=== PATIENT | female | born 1935 | race Caucasian/White ===

== ENCOUNTER 2017-02-01 17:55 | Emergency (ER) | payer MEDICARE ==
[~2017-02-01] VITALS: Ht 165.1 cm; Wt 81.6 kg
[2017-02-01 18:00] VITALS: BP_SYST 132
--- NOTE | 2017-02-01 18:00 | NUR ---
Patient to ER bed 03 to gown for evaluation. Side rails up. Report given to
--- NOTE | 2017-02-01 18:29 | NUR ---
Patient to ED for eval of low back, left hip and arm pain s/p non-syncopal fall on 01/10/17. Seen at outside hospital, had x-rays which were negative. Patient has had episodes of coughing up blood-taken off blood thinners per patient. Patient to bed 3 to await MD evaluation-will continue to observe and assess. Family remains at bedside.
--- NOTE | 2017-02-01 18:46 | NUR ---
ER at bedside examining patient.
[2017-02-01] MEDS ORDERED: MORPHINE 4 MG/ML INJ. SYRINGE IVP ONE (19:00)
[2017-02-01] MEDS ORDERED: PANTOPRAZOLE SODIUM 40 MG in NS 50 ML IV ONE (19:00)
[2017-02-01] MEDS ORDERED: PANTOPRAZOLE SODIUM 80 MG in NS 100 ML IV ONE (19:00)
--- NOTE | 2017-02-01 19:22 | NUR ---
Attempted to start IV without success, charge nurse notified, and will be in to attempt IV
[2017-02-01 19:25] LABS: EOSINOPHILS # (AUTO) 0.2 K/uL (0.0-0.4); EOSINOPHILS % (AUTO) 5.3 % (0.0-4.0); HEMATOCRIT 31.7 % (36-48); HEMOGLOBIN 10.5 g/dL (12.0-16.0); LYMPHOCYTES # (AUTO) 0.9 K/uL (1.0-5.5); LYMPHOCYTES % (AUTO) 19.8 % (20.5-51.5); MEAN CORPUSCULAR HEMOGLOBIN 32 pg (27-31); MEAN CORPUSCULAR HGB CONC 33 % (32-36); MEAN CORPUSCULAR VOLUME 96 fL (79.0-98.0); MONOCYTES # (AUTO) 0.6 K/uL (0.0-1.0); MONOCYTES % (AUTO) 14.3 % (1.7-9.3); NEUTROPHILS # (AUTO) 2.8 K/uL (1.8-7.7); NEUTROPHILS % (AUTO) 59.6 % (40.0-70.0); PLATELET COUNT (AUTO) 178 K/uL (130-430); RED BLOOD CELL COUNT(AUTO) 3.31 MIL/uL (4.2-6.2); RED CELL DISTRIBUTION WIDTH 12.6 % (9.0-15.0); WHITE BLOOD COUNT (AUTO) 4.5 K/uL (4.8-10.8)
[2017-02-01 19:35] LABS: INR 1.1 (0.8-1.2); PROTHROMBIN TIME 11.4 SECS (9.5-12.5)
[2017-02-01 19:37] LABS: ANION GAP 6 (5-15); CALCIUM 8.6 mg/dL (8.4-11.0); CHLORIDE 93 mmol/L (98-107); GLUCOSE 113 mg/dL (70-99); POTASSIUM 4.3 mmol/L (3.5-5.1); SODIUM SERUM 125 mmol/L (136-145); UREA NITROGEN, BLOOD 18 mg/dL (8-21)
[2017-02-01 19:42] LABS: ALANINE AMINOTRANSFERASE 21 U/L (12-78); ALBUMIN 3.5 g/dL (3.4-4.8); ASPARTATE AMINOTRANSFERASE 22 U/L (10-37); TOTAL BILIRUBIN 0.5 mg/dL (0.0-1.0); TOTAL PROTEIN, SERUM 7.1 g/dL (6.4-8.3)
--- NOTE | 2017-02-01 20:17 | NUR ---
Additional nurse-Roseline at bedside to attempt IV access. Patient resting quietly in nad
[2017-02-01] MEDS ORDERED: AMI200 PO (20:55)
[2017-02-01] MEDS ORDERED: POTA20TA83 PO (20:55)
[2017-02-01] MEDS ORDERED: METO25TA6 PO (20:55)
[2017-02-01] MEDS ORDERED: HYDR25TA4 PO (20:55)
[2017-02-01] MEDS ORDERED: BUME1TAB4 PO (20:55)
[2017-02-01 21:56] VITALS: BP_SYST 147
--- NOTE | 2017-02-01 21:56 | NUR ---
Patient given written and verbal discharge instructions and verbalizes understanding. ER MD LOUIS discussed with patient the results and treatment provided. Patient in stable condition. ID arm band removed. IV catheter removed intact and dressing applied, no active bleeding. Rx of NORCO 10-325, OMEPRAZOLE, LASIX given. Patient educated on pain management and to follow up with PMD. Pain Scale 2/10. Opportunity for questions provided and answered.
== END 2017-02-01 21:56 | disposition home or self-care (01) ==
LOC: SED 17:55
DX: S70.01XA Contusion of right hip, initial encounter (principal); I50.9 Heart failure, unspecified; K92.1 Melena; Z95.0 Presence of cardiac pacemaker; Z79.899 Other long term (current) drug therapy; W18.30XA Fall on same level, unspecified, initial encounter; Y93.89 Activity, other specified; Y92.89 Other specified places as the place of occurrence of the external cause; Y99.8 Other external cause status; Z88.8 Allergy status to other drugs, medicaments and biological substances
CPT/HCPCS: 36415; 71010; 80053; 83605; 83880; 84484; 85025; 85610; 87040; 93005; 96365; 96375; 99285; C9113; J2270

== ENCOUNTER 2023-04-22 11:34 | Inpatient (IN) | payer OTHER, MEDICAID ==
[~2023-04-22] VITALS: Ht 165.1 cm; Wt 98.0 kg
[~2023-04-22 11:34] MED LIST: AMIO200T66 PO; BUME1TAB9 PO; CARBOXYMETHYLCELLULOSE OP SCH; HYDR25TA4 PO; METO25TA6 PO; POTA-197 PO
[2023-04-22 11:45] VITALS: BP_SYST 146; PULSE 75; RESP 20; TEMP 98.3; O2SAT 98
[2023-04-22 12:30] LABS: HEMATOCRIT 35.9 % (36-48); HEMOGLOBIN 11.6 g/dL (12.0-16.0); MEAN CORPUSCULAR HEMOGLOBIN 33 pg (27-31); MEAN CORPUSCULAR HGB CONC 32 % (32-36); MEAN CORPUSCULAR VOLUME 103 fL (79.0-98.0); PLATELET COUNT (AUTO) 92 K/uL (130-430); RED CELL DISTRIBUTION WIDTH 14.6 % (9.0-15.0)
[2023-04-22 12:36] LABS: ANION GAP 10 (5-15); CALCIUM 9.7 mg/dL (8.4-11.0); CARBON DIOXIDE 26 mmol/L (23-29); CHLORIDE 106 mmol/L (98-107); CREATININE 0.95 mg/dL (0.55-1.30); GLUCOSE 98 mg/dL (74-106); POTASSIUM 3.6 mmol/L (3.5-5.1); SODIUM SERUM 142 mmol/L (136-145); UREA NITROGEN, BLOOD 20 mg/dL (8-21)
[2023-04-22] MEDS ORDERED: FER300L PO (12:39)
[2023-04-22] MEDS ORDERED: FURO80TA86 PO (12:39)
[2023-04-22] MEDS ORDERED: DIGO125T PO (12:39)
[2023-04-22] MEDS ORDERED: APIX5TAB PO (12:39)
[2023-04-22] MEDS ORDERED: CHOL200019 (12:39)
[2023-04-22] MEDS ORDERED: ACET-2634 PO (12:40)
[2023-04-22] MEDS ORDERED: [UNRECOGNIZED DRUG - OTHER] OP (12:40)
[2023-04-22] MEDS ORDERED: CARB30DR14 EACH EYE (12:40)
[2023-04-22 12:41] LABS: WHITE BLOOD COUNT (AUTO) 4.4 K/uL (4.8-10.8)
[2023-04-22 12:46] LABS: INR 1.3 (0.8-1.2); PROTHROMBIN TIME 13.5 SECS (9.5-12.5)
[2023-04-22 12:47] LABS: ALANINE AMINOTRANSFERASE 17 U/L (12-78); ALBUMIN 3.4 g/dL (3.4-4.8); AMYLASE 33 U/L (0-100); ASPARTATE AMINOTRANSFERASE 29 U/L (10-37); LIPASE 49 U/L (73-393); TOTAL BILIRUBIN 2.6 mg/dL (0.0-1.0); TOTAL PROTEIN, SERUM 8.1 g/dL (6.4-8.3)
[2023-04-22 13:35] LABS: ANISOCYTOSIS 1+; ATYPICAL LYMPHOCYTES % 0 % (0-0); BAND % (MANUAL) 25 % (0-6); BASOPHILS % (MANUAL) 0 % (0-2); EOSINOPHILS % (MANUAL) 0 % (0-7); HYPOCHROMASIA 1+; LYMPHOCYTES % (MANUAL) 12 % (20-46); MONOCYTES % (MANUAL) 3 % (0-11); PLATELET ESTIMATE DECREASED (ADEQUATE); SMUDGE CELLS FEW
[2023-04-22] MEDS ORDERED: PANTOPRAZOLE SODIUM 80 MG in NS 100 ML IV ONE (14:30)
[2023-04-22] MEDS ORDERED: MORPHINE 4 MG INJ. 4 MG/ML VIAL IVP PRN (16:00)
[2023-04-22] MEDS ORDERED: traMADol HCL HCL 50 MG TABLET (ULTRAM) PO PRN (16:00)
[2023-04-22] MEDS ORDERED: ONDANSETRON HCL 4 MG/2 ML VIAL IM PRN (16:00)
[2023-04-22] MEDS ORDERED: ACETAMINOPHEN 500 MG TABLET PO PRN (17:30)
[2023-04-22 18:13] VITALS: O2SAT 100
[2023-04-22 18:32] VITALS: BP_SYST 109; PULSE 74; RESP 18; TEMP 98.2
[2023-04-22 20:00] VITALS: BP_SYST 110; RESP 18; TEMP 98.4; O2SAT 94
[2023-04-22] MEDS: BUMETANIDE 1 MG TABLET PO SCH (20:39)
[2023-04-22] MEDS ORDERED: CARBOXYMETHYLCELLULOSE SODIUM EACH EYE SCH (21:00)
[2023-04-22] MEDS ORDERED: DOXYCYCLINE HYCLATE 100 MG in D5W 100 ML IV SCH (21:00)
[2023-04-22] MEDS: PANTOPRAZOLE SODIUM 40 MG/VIAL (PROTONIX) IVP SCH (21:57)
[2023-04-23] VITALS (9 sets, daily range): BP systolic 88–110; PULSE 65–81; RESP 10–29; TEMP 98.4–99.7; O2SAT 2–95
[2023-04-23] MEDS ORDERED: METOPROLOL TARTRATE 25 MG TABLET PO ONE (04:30)
[2023-04-23 05:12] LABS: BASOPHILS % (AUTO) 0.1 % (0.0-2.0); EOSINOPHILS % (AUTO) 0.1 % (0.0-4.0); HEMATOCRIT 32.3 % (36-48); HEMOGLOBIN 10.7 g/dL (12.0-16.0); LYMPHOCYTES # (AUTO) 0.3 K/uL (1.0-5.5); LYMPHOCYTES % (AUTO) 4.9 % (20.5-51.5); MEAN CORPUSCULAR HEMOGLOBIN 33 pg (27-31); MEAN CORPUSCULAR HGB CONC 33 % (32-36); MEAN CORPUSCULAR VOLUME 101 fL (79.0-98.0); MONOCYTES # (AUTO) 0.5 K/uL (0.0-1.0); MONOCYTES % (AUTO) 8.3 % (1.7-9.3); NEUTROPHILS # (AUTO) 5.7 K/uL (1.8-7.7); NEUTROPHILS % (AUTO) 86.6 % (40.0-70.0); PLATELET COUNT (AUTO) 72 K/uL (130-430); RED BLOOD CELL COUNT(AUTO) 3.19 MIL/uL (4.2-6.2); RED CELL DISTRIBUTION WIDTH 14.7 % (9.0-15.0); WHITE BLOOD COUNT (AUTO) 6.5 K/uL (4.8-10.8)
[2023-04-23 05:38] LABS: INR 1.7 (0.8-1.2)
[2023-04-23 05:41] LABS: ALANINE AMINOTRANSFERASE 17 U/L (12-78); ALBUMIN 2.6 g/dL (3.4-4.8); ANION GAP 10 (5-15); ASPARTATE AMINOTRANSFERASE 29 U/L (10-37); CARBON DIOXIDE 25 mmol/L (23-29); CHLORIDE 106 mmol/L (98-107); CREATININE 1.35 mg/dL (0.55-1.30); FREE T4 (FREE THYROXINE) 1.3 ng/dL (0.6-1.6); GLUCOSE 94 mg/dL (74-106); POTASSIUM 3.9 mmol/L (3.5-5.1); SODIUM SERUM 141 mmol/L (136-145); THYROID STIMULATING HORMONE 1.04 uIu/mL (0.34-4.82); TOTAL BILIRUBIN 3.9 mg/dL (0.0-1.0); TOTAL PROTEIN, SERUM 6.7 g/dL (6.4-8.3); UREA NITROGEN, BLOOD 30 mg/dL (8-21)
[2023-04-23] MEDS ORDERED: MIDAZOLAM HCL 5 MG/5 ML VIAL ONE (07:30)
[2023-04-23] MEDS ORDERED: MEPERIDINE 100 MG INJ. 100 MG/ML VIAL ONE (07:30)
[2023-04-23] MEDS: DIGOXIN 0.125 MG TABLET PO SCH (09:00)
[2023-04-23] MEDS: METOPROLOL TARTRATE 25 MG TABLET PO SCH (09:00)
[2023-04-23] MEDS: AMIODARONE HCL 200 MG TABLET PO SCH (09:00)
[2023-04-23] MEDS ORDERED: POTASSIUM CHLORIDE 20 MEQ TAB.PRT.SR PO SCH (09:00)
[2023-04-23] MEDS ORDERED: FUROSEMIDE 80 MG TABLET PO SCH (09:00)
[2023-04-23] MEDS: BUMETANIDE 1 MG TABLET PO SCH ×2 (09:00→22:06)
[2023-04-23] MEDS: CARBOXYMETHYLCELLULOSE OP SCH ×3 (09:46→21:00)
[2023-04-23] MEDS: CHOLECALCIFEROL (VITAMIN D3) 2,000 UNIT TABLET PO SCH (09:49)
[2023-04-23] MEDS: FERROUS SULFATE 300 MG/5 ML UDC PO SCH (09:49)
[2023-04-23] MEDS ORDERED: MIDODRINE HCL 5 MG TABLET (PROAMATINE) PO ONE (11:15)
[2023-04-23] MEDS: PANTOPRAZOLE SODIUM 40 MG/VIAL (PROTONIX) IVP SCH ×2 (12:46→21:10)
[2023-04-23] MEDS ORDERED: NOREPINEPHRINE BITARTRATE 4 MG in D5W 246 ML IV PRN (14:00)
[2023-04-23] MEDS: MIDODRINE HCL 5 MG TABLET (PROAMATINE) PO SCH ×2 (15:00→21:00)
[2023-04-23] MEDS: PIPERACILLIN/TAZO 2.25G/DEX-IS 50 ML IV SCH ×2 (17:20→22:05)
[2023-04-23] MEDS: NACL 0.9% 1,000 ML IV SCH (17:45)
[2023-04-23] MEDS ORDERED: VANCOMYCIN HCL 1,000 MG in NS 250 ML IV ONE (18:00)
[2023-04-24] VITALS (28 sets, daily range): BP systolic 89–121; PULSE 78–81; RESP 14–23; TEMP 97.7–98.6; O2SAT 90–98
[2023-04-24] MEDS: PIPERACILLIN/TAZO 2.25G/DEX-IS 50 ML IV SCH ×4 (03:38→21:46)
[2023-04-24 05:52] LABS: BASOPHILS % (AUTO) 0.1 % (0.0-2.0); EOSINOPHILS % (AUTO) 0.3 % (0.0-4.0); HEMATOCRIT 32.3 % (36-48); HEMOGLOBIN 10.4 g/dL (12.0-16.0); LYMPHOCYTES # (AUTO) 0.4 K/uL (1.0-5.5); LYMPHOCYTES % (AUTO) 3.9 % (20.5-51.5); MEAN CORPUSCULAR HEMOGLOBIN 33 pg (27-31); MEAN CORPUSCULAR HGB CONC 32 % (32-36); MEAN CORPUSCULAR VOLUME 103 fL (79.0-98.0); MONOCYTES % (AUTO) 10.2 % (1.7-9.3); NEUTROPHILS # (AUTO) 8.4 K/uL (1.8-7.7); NEUTROPHILS % (AUTO) 85.5 % (40.0-70.0); PLATELET COUNT (AUTO) 74 K/uL (130-430); RED BLOOD CELL COUNT(AUTO) 3.15 MIL/uL (4.2-6.2); WHITE BLOOD COUNT (AUTO) 9.8 K/uL (4.8-10.8)
[2023-04-24 06:18] LABS: INR 1.6 (0.8-1.2)
[2023-04-24 06:34] LABS: ALANINE AMINOTRANSFERASE 18 U/L (12-78); ALBUMIN 2.6 g/dL (3.4-4.8); ANION GAP 7 (5-15); ASPARTATE AMINOTRANSFERASE 24 U/L (10-37); CALCIUM 8.7 mg/dL (8.4-11.0); CARBON DIOXIDE 26 mmol/L (23-29); CHLORIDE 105 mmol/L (98-107); CHOLESTEROL 69 mg/dL (<200); CREATININE 1.78 mg/dL (0.55-1.30); FREE T4 (FREE THYROXINE) 1.2 ng/dL (0.6-1.6); GLUCOSE 95 mg/dL (74-106); HDL CHOLESTEROL 34 mg/dL (>55); POTASSIUM 4.4 mmol/L (3.5-5.1); SODIUM SERUM 138 mmol/L (136-145); THYROID STIMULATING HORMONE 1.17 uIu/mL (0.34-4.82); TOTAL BILIRUBIN 3.3 mg/dL (0.0-1.0); TOTAL PROTEIN, SERUM 6.8 g/dL (6.4-8.3); TRIGLYCERIDES 47 mg/dL (30-150); UREA NITROGEN, BLOOD 41 mg/dL (8-21)
[2023-04-24 06:35] LABS: DIGOXIN 0.5 ng/mL (0.80-2.00)
[2023-04-24] MEDS: NACL 0.9% 1,000 ML IV SCH ×3 (07:49→21:46)
[2023-04-24] MEDS: ALBUMIN HUMAN 25% 50 ML IV SCH ×3 (07:50→21:39)
[2023-04-24] MEDS ORDERED: SIMETHICONE 40 MG/0.6 ML ML ONE (08:05)
[2023-04-24] MEDS ORDERED: MIDAZOLAM HCL 5 MG/5 ML VIAL ONE (08:06)
[2023-04-24] MEDS ORDERED: MEPERIDINE 100 MG INJ. 100 MG/ML VIAL ONE (08:06)
[2023-04-24] MEDS: AMIODARONE HCL 200 MG TABLET PO SCH (08:21)
[2023-04-24] MEDS: CARBOXYMETHYLCELLULOSE OP SCH ×3 (08:21→21:00)
[2023-04-24] MEDS: FERROUS SULFATE 300 MG/5 ML UDC PO SCH (08:22)
[2023-04-24] MEDS: DIGOXIN 0.125 MG TABLET PO SCH (08:22)
[2023-04-24] MEDS: BUMETANIDE 1 MG TABLET PO SCH ×2 (08:22→21:45)
[2023-04-24] MEDS: METOPROLOL TARTRATE 25 MG TABLET PO SCH (08:23)
[2023-04-24] MEDS: CHOLECALCIFEROL (VITAMIN D3) 2,000 UNIT TABLET PO SCH (08:24)
[2023-04-24] MEDS: MIDODRINE HCL 5 MG TABLET (PROAMATINE) PO SCH ×3 (08:24→21:45)
[2023-04-24] MEDS: PANTOPRAZOLE SODIUM 40 MG/VIAL (PROTONIX) IVP SCH ×2 (08:29→21:39)
[2023-04-24] MEDS ORDERED: DIPHENHYDRAMINE INJ 50 MG/ML VIAL ONE (09:14)
[2023-04-24 12:45] LABS: ABG O2 SAT% ESTIMATE 96.7 % (94.0-100.0); ALLEN'S TEST POSITIVE (P); BLOOD GAS HCO3 23.6 mmol/L (21.0-27.0); BLOOD GAS PCO2 47.9 mmHg (35.0-45.0); BLOOD GAS PO2 96.1 mmHg (75.0-100.0)
[2023-04-24] MEDS: AZITHROMYCIN 500 MG in NS 250 ML IV SCH (12:46)
[2023-04-24] MEDS ORDERED: FUROSEMIDE 40 MG/4 ML VIAL IVP ONE (15:15)
[2023-04-24] MEDS ORDERED: MENTHOL/ZINC OXIDE 113 GM OINT. TP PRN (15:15)
[2023-04-24] MEDS: PROPARACAINE (OPTHANINE 0.5%) 15 ML DROPS OP PRN ×2 (15:23→21:39)
[2023-04-24] MEDS ORDERED: VANCOMYCIN HCL 750 MG in NS 250 ML IV SCH (18:00)
[2023-04-24 22:02] LABS: BILIRUBIN,URINE 1+ (NEGATIVE); BLOOD, URINE 3+ (NEGATIVE); CLARITY/URINE CLEAR (CLEAR); COLOR,URINE YELLOW (YELLOW); GLUCOSE,URINE NEGATIVE (NEGATIVE); KETONES,URINE NEGATIVE (NEGATIVE); LEUKOCYTE ESTERASE ,URINE TRACE (NEGATIVE); NITRITE, URINE NEGATIVE (NEGATIVE); PH,URINE 5.5 (5.0-8.0); PROTEIN URINE 2+ (NEGATIVE)
[2023-04-24 22:42] LABS: BACTERIA,URINE FEW /HPF (None Seen)
[2023-04-25] VITALS (27 sets, daily range): BP systolic 96–121; PULSE 74–88; RESP 13–25; TEMP 97.6–98.1; O2SAT 88–100
[2023-04-25] MEDS: PIPERACILLIN/TAZO 2.25G/DEX-IS 50 ML IV SCH ×4 (04:38→22:42)
[2023-04-25 04:59] LABS: BASOPHILS % (AUTO) 0.2 % (0.0-2.0); EOSINOPHILS # (AUTO) 0.1 K/uL (0.0-0.4); EOSINOPHILS % (AUTO) 1.4 % (0.0-4.0); HEMATOCRIT 33.6 % (36-48); HEMOGLOBIN 10.7 g/dL (12.0-16.0); LYMPHOCYTES # (AUTO) 0.4 K/uL (1.0-5.5); LYMPHOCYTES % (AUTO) 4.5 % (20.5-51.5); MEAN CORPUSCULAR HEMOGLOBIN 33 pg (27-31); MEAN CORPUSCULAR HGB CONC 32 % (32-36); MEAN CORPUSCULAR VOLUME 104 fL (79.0-98.0); MONOCYTES # (AUTO) 0.9 K/uL (0.0-1.0); MONOCYTES % (AUTO) 9.7 % (1.7-9.3); NEUTROPHILS # (AUTO) 7.8 K/uL (1.8-7.7); NEUTROPHILS % (AUTO) 84.2 % (40.0-70.0); PLATELET COUNT (AUTO) 82 K/uL (130-430); RED BLOOD CELL COUNT(AUTO) 3.24 MIL/uL (4.2-6.2); RED CELL DISTRIBUTION WIDTH 15.1 % (9.0-15.0); WHITE BLOOD COUNT (AUTO) 9.3 K/uL (4.8-10.8)
[2023-04-25 05:29] LABS: ALANINE AMINOTRANSFERASE 15 U/L (12-78); ANION GAP 8 (5-15); ASPARTATE AMINOTRANSFERASE 21 U/L (10-37); CALCIUM 9.1 mg/dL (8.4-11.0); CARBON DIOXIDE 26 mmol/L (23-29); CHLORIDE 102 mmol/L (98-107); CREATININE 1.98 mg/dL (0.55-1.30); GLUCOSE 112 mg/dL (74-106); PHOSPHORUS 3.9 mg/dL (2.7-4.5); POTASSIUM 4.3 mmol/L (3.5-5.1); SODIUM SERUM 136 mmol/L (136-145); TOTAL BILIRUBIN 3.1 mg/dL (0.0-1.0); TOTAL PROTEIN, SERUM 7.4 g/dL (6.4-8.3); UREA NITROGEN, BLOOD 48 mg/dL (8-21)
[2023-04-25] MEDS: CHOLECALCIFEROL (VITAMIN D3) 2,000 UNIT TABLET PO SCH (09:19)
[2023-04-25] MEDS: DIGOXIN 0.125 MG TABLET PO SCH (09:19)
[2023-04-25] MEDS: METOPROLOL TARTRATE 25 MG TABLET PO SCH (09:19)
[2023-04-25] MEDS: PANTOPRAZOLE SODIUM 40 MG/VIAL (PROTONIX) IVP SCH ×2 (09:20→22:39)
[2023-04-25] MEDS: BUMETANIDE 1 MG TABLET PO SCH ×2 (09:20→22:39)
[2023-04-25] MEDS: CARBOXYMETHYLCELLULOSE OP SCH ×3 (09:20→21:00)
[2023-04-25] MEDS: NACL 0.9% 1,000 ML IV SCH ×2 (09:21→22:41)
[2023-04-25] MEDS: FERROUS SULFATE 300 MG/5 ML UDC PO SCH (09:22)
[2023-04-25] MEDS: MIDODRINE HCL 5 MG TABLET (PROAMATINE) PO SCH ×3 (09:22→22:39)
[2023-04-25 10:58] LABS: URINE SODIUM, RANDOM 13 mmol/L (40-220)
[2023-04-25] MEDS: AZITHROMYCIN 500 MG in NS 250 ML IV SCH (12:39)
[2023-04-25] MEDS: PROPARACAINE (OPTHANINE 0.5%) 15 ML DROPS OP PRN (22:40)
[2023-04-26] VITALS (25 sets, daily range): BP systolic 91–136; PULSE 65–103; RESP 16–25; TEMP 97.5–98.8; O2SAT 80–97
[2023-04-26] MEDS ORDERED: FUROSEMIDE 20 MG/2 ML VIAL ONE (02:15)
[2023-04-26] MEDS ORDERED: IPRATROPIUM/ALBUTEROL SULFATE 3 ML AMPUL.NEB (DUONEB) INH PRN (02:15)
[2023-04-26] MEDS ORDERED: FUROSEMIDE 20 MG/2 ML VIAL IVP ONE (02:25)
[2023-04-26] MEDS: PIPERACILLIN/TAZO 2.25G/DEX-IS 50 ML IV SCH ×4 (05:29→21:27)
[2023-04-26 05:55] LABS: BASOPHILS % (AUTO) 0.3 % (0.0-2.0); EOSINOPHILS # (AUTO) 0.1 K/uL (0.0-0.4); EOSINOPHILS % (AUTO) 2.5 % (0.0-4.0); HEMATOCRIT 33.1 % (36-48); HEMOGLOBIN 10.8 g/dL (12.0-16.0); LYMPHOCYTES # (AUTO) 0.5 K/uL (1.0-5.5); MEAN CORPUSCULAR HEMOGLOBIN 33 pg (27-31); MEAN CORPUSCULAR HGB CONC 33 % (32-36); MEAN CORPUSCULAR VOLUME 102 fL (79.0-98.0); MONOCYTES # (AUTO) 0.8 K/uL (0.0-1.0); MONOCYTES % (AUTO) 15.5 % (1.7-9.3); NEUTROPHILS # (AUTO) 3.6 K/uL (1.8-7.7); NEUTROPHILS % (AUTO) 71.7 % (40.0-70.0); PLATELET COUNT (AUTO) 82 K/uL (130-430); RED BLOOD CELL COUNT(AUTO) 3.25 MIL/uL (4.2-6.2); RED CELL DISTRIBUTION WIDTH 14.5 % (9.0-15.0)
[2023-04-26 06:11] LABS: INR 1.3 (0.8-1.2); PROTHROMBIN TIME 13.7 SECS (9.5-12.5)
[2023-04-26 06:26] LABS: ALANINE AMINOTRANSFERASE 14 U/L (12-78); ALBUMIN 2.8 g/dL (3.4-4.8); ANION GAP 12 (5-15); ASPARTATE AMINOTRANSFERASE 19 U/L (10-37); CALCIUM 9.1 mg/dL (8.4-11.0); CARBON DIOXIDE 25 mmol/L (23-29); CHLORIDE 105 mmol/L (98-107); CREATININE 1.89 mg/dL (0.55-1.30); DIGOXIN 0.6 ng/mL (0.80-2.00); GLUCOSE 96 mg/dL (74-106); PHOSPHORUS 3.4 mg/dL (2.7-4.5); POTASSIUM 4.2 mmol/L (3.5-5.1); SODIUM SERUM 142 mmol/L (136-145); UREA NITROGEN, BLOOD 49 mg/dL (8-21)
[2023-04-26] MEDS: CARBOXYMETHYLCELLULOSE OP SCH ×2 (09:00→13:36)
[2023-04-26] MEDS: MIDODRINE HCL 5 MG TABLET (PROAMATINE) PO SCH ×3 (09:23→20:35)
[2023-04-26] MEDS: DIGOXIN 0.125 MG TABLET PO SCH (09:23)
[2023-04-26] MEDS: BUMETANIDE 1 MG TABLET PO SCH ×2 (09:24→20:36)
[2023-04-26] MEDS: CHOLECALCIFEROL (VITAMIN D3) 2,000 UNIT TABLET PO SCH (09:25)
[2023-04-26] MEDS: FERROUS SULFATE 300 MG/5 ML UDC PO SCH (09:26)
[2023-04-26] MEDS: PANTOPRAZOLE SODIUM 40 MG/VIAL (PROTONIX) IVP SCH ×2 (09:26→20:35)
[2023-04-26] MEDS: METOPROLOL TARTRATE 25 MG TABLET PO SCH (13:29)
[2023-04-26] MEDS: AZITHROMYCIN 500 MG in NS 250 ML IV SCH (13:29)
[2023-04-26] MEDS: NACL 0.9% 1,000 ML IV SCH (13:36)
[2023-04-26 17:30] LABS: INFLUENZA TYPE A Negative (NEGATIVE); INFLUENZA TYPE B NEGATIVE (NEGATIVE)
[2023-04-26] MEDS ORDERED: PEG 400/HYPROMELLOSE/GLYCERIN 15 ML DROPS OP PRN (18:00)
[2023-04-26] MEDS ORDERED: ALAWAY EYE DROPS OP PRN (18:00)
[2023-04-27 00:05] VITALS: BP_SYST 125; PULSE 72; RESP 20; TEMP 96.9; O2SAT 96
[2023-04-27] MEDS: PIPERACILLIN/TAZO 2.25G/DEX-IS 50 ML IV SCH ×2 (05:01→09:41)
[2023-04-27 05:48] LABS: BASOPHILS % (AUTO) 0.8 % (0.0-2.0); EOSINOPHILS # (AUTO) 0.1 K/uL (0.0-0.4); HEMATOCRIT 34.1 % (36-48); HEMOGLOBIN 11.1 g/dL (12.0-16.0); LYMPHOCYTES # (AUTO) 0.5 K/uL (1.0-5.5); MEAN CORPUSCULAR HEMOGLOBIN 33 pg (27-31); MEAN CORPUSCULAR HGB CONC 33 % (32-36); MEAN CORPUSCULAR VOLUME 102 fL (79.0-98.0); MONOCYTES # (AUTO) 0.9 K/uL (0.0-1.0); NEUTROPHILS # (AUTO) 2.5 K/uL (1.8-7.7); NEUTROPHILS % (AUTO) 61.2 % (40.0-70.0); PLATELET COUNT (AUTO) 89 K/uL (130-430); RED BLOOD CELL COUNT(AUTO) 3.36 MIL/uL (4.2-6.2); RED CELL DISTRIBUTION WIDTH 14.6 % (9.0-15.0)
[2023-04-27 06:18] LABS: ALANINE AMINOTRANSFERASE 15 U/L (12-78); ALBUMIN 2.8 g/dL (3.4-4.8); ANION GAP 11 (5-15); ASPARTATE AMINOTRANSFERASE 17 U/L (10-37); CALCIUM 9.4 mg/dL (8.4-11.0); CARBON DIOXIDE 26 mmol/L (23-29); CHLORIDE 104 mmol/L (98-107); CHOLESTEROL 74 mg/dL (<200); CREATININE 1.78 mg/dL (0.55-1.30); GLUCOSE 91 mg/dL (74-106); HDL CHOLESTEROL 31 mg/dL (>55); PHOSPHORUS 3.3 mg/dL (2.7-4.5); POTASSIUM 3.7 mmol/L (3.5-5.1); SODIUM SERUM 141 mmol/L (136-145); TOTAL BILIRUBIN 2.7 mg/dL (0.0-1.0); TOTAL PROTEIN, SERUM 7.3 g/dL (6.4-8.3); TRIGLYCERIDES 50 mg/dL (30-150); UREA NITROGEN, BLOOD 47 mg/dL (8-21)
[2023-04-27 08:00] VITALS: O2SAT 95
[2023-04-27] MEDS: DIGOXIN 0.125 MG TABLET PO SCH (09:40)
[2023-04-27] MEDS: FERROUS SULFATE 300 MG/5 ML UDC PO SCH (09:40)
[2023-04-27] MEDS: CHOLECALCIFEROL (VITAMIN D3) 2,000 UNIT TABLET PO SCH (09:41)
[2023-04-27] MEDS: METOPROLOL TARTRATE 25 MG TABLET PO SCH (09:41)
[2023-04-27] MEDS: PANTOPRAZOLE SODIUM 40 MG/VIAL (PROTONIX) IVP SCH ×2 (09:41→21:48)
[2023-04-27] MEDS: MIDODRINE HCL 5 MG TABLET (PROAMATINE) PO SCH ×3 (09:41→21:48)
[2023-04-27] MEDS: BUMETANIDE 1 MG TABLET PO SCH ×2 (09:42→21:00)
[2023-04-27 12:00] VITALS: BP_SYST 122; PULSE 75; RESP 19; TEMP 97.2; O2SAT 97
[2023-04-27] MEDS: NACL 0.9% 1,000 ML IV SCH (13:20)
[2023-04-27 16:42] VITALS: BP_SYST 124; PULSE 77; RESP 20; TEMP 97.8; O2SAT 97
[2023-04-27 20:25] VITALS: BP_SYST 118; PULSE 66; RESP 16; TEMP 97.5; O2SAT 95
[2023-04-27 21:00] VITALS: O2SAT 95
[2023-04-28] VITALS (12 sets, daily range): BP systolic 123–142; PULSE 70–77; RESP 16–20; TEMP 97.3–98.1; O2SAT 95–98
[2023-04-28 05:41] LABS: BASOPHILS % (AUTO) 0.9 % (0.0-2.0); EOSINOPHILS # (AUTO) 0.1 K/uL (0.0-0.4); EOSINOPHILS % (AUTO) 4.3 % (0.0-4.0); HEMATOCRIT 33.3 % (36-48); HEMOGLOBIN 10.9 g/dL (12.0-16.0); LYMPHOCYTES # (AUTO) 0.5 K/uL (1.0-5.5); LYMPHOCYTES % (AUTO) 16.5 % (20.5-51.5); MEAN CORPUSCULAR HEMOGLOBIN 33 pg (27-31); MEAN CORPUSCULAR HGB CONC 33 % (32-36); MEAN CORPUSCULAR VOLUME 101 fL (79.0-98.0); MONOCYTES # (AUTO) 0.8 K/uL (0.0-1.0); MONOCYTES % (AUTO) 27.2 % (1.7-9.3); NEUTROPHILS # (AUTO) 1.5 K/uL (1.8-7.7); NEUTROPHILS % (AUTO) 51.1 % (40.0-70.0); PLATELET COUNT (AUTO) 99 K/uL (130-430); RED BLOOD CELL COUNT(AUTO) 3.29 MIL/uL (4.2-6.2); RED CELL DISTRIBUTION WIDTH 14.5 % (9.0-15.0)
[2023-04-28 06:07] LABS: ALANINE AMINOTRANSFERASE 12 U/L (12-78); ALBUMIN 2.7 g/dL (3.4-4.8); ANION GAP 13 (5-15); ASPARTATE AMINOTRANSFERASE 16 U/L (10-37); CALCIUM 9.5 mg/dL (8.4-11.0); CARBON DIOXIDE 26 mmol/L (23-29); CHLORIDE 104 mmol/L (98-107); CREATININE 1.51 mg/dL (0.55-1.30); GLUCOSE 85 mg/dL (74-106); PHOSPHORUS 3.5 mg/dL (2.7-4.5); POTASSIUM 3.4 mmol/L (3.5-5.1); SODIUM SERUM 143 mmol/L (136-145); TOTAL BILIRUBIN 2.4 mg/dL (0.0-1.0); TOTAL PROTEIN, SERUM 7.4 g/dL (6.4-8.3); UREA NITROGEN, BLOOD 44 mg/dL (8-21)
[2023-04-28 06:20] LABS: INR 1.5 (0.8-1.2); PROTHROMBIN TIME 14.8 SECS (9.5-12.5)
[2023-04-28] MEDS: MIDODRINE HCL 5 MG TABLET (PROAMATINE) PO SCH ×3 (08:58→20:45)
[2023-04-28] MEDS: CHOLECALCIFEROL (VITAMIN D3) 2,000 UNIT TABLET PO SCH (08:58)
[2023-04-28] MEDS: FERROUS SULFATE 300 MG/5 ML UDC PO SCH (08:58)
[2023-04-28] MEDS: BUMETANIDE 1 MG TABLET PO SCH ×2 (08:59→20:45)
[2023-04-28] MEDS: METOPROLOL TARTRATE 25 MG TABLET PO SCH (08:59)
[2023-04-28] MEDS: DIGOXIN 0.125 MG TABLET PO SCH (08:59)
[2023-04-28] MEDS: PANTOPRAZOLE SODIUM 40 MG/VIAL (PROTONIX) IVP SCH ×2 (09:00→20:45)
[2023-04-28] MEDS: NACL 0.9% 1,000 ML IV SCH (14:04)
[2023-04-28] MEDS ORDERED: POTASSIUM CHLORIDE 20 MEQ TAB.PRT.SR PO ONE (15:30)
[2023-04-28] MEDS ORDERED: levoFLOXacin 250 MG TABLET PO ONE (16:15)
[2023-04-28] MEDS ORDERED: IPRATROPIUM/ALBUTEROL SULFATE 3 ML AMPUL.NEB (DUONEB) INH ONE (16:15)
[2023-04-28] MEDS ORDERED: LACTOBACILLUS RHAMNOSUS GG 1 CAP CAPSULE PO ONE (16:30)
[2023-04-28] MEDS: LACTOBACILLUS RHAMNOSUS GG 1 CAP CAPSULE PO SCH (20:45)
[2023-04-28] MEDS ORDERED: IPRATROPIUM/ALBUTEROL SULFATE 3 ML AMPUL.NEB (DUONEB) INH SCH (21:00)
[2023-04-28] MEDS: IPRATROPIUM/ALBUTEROL SULFATE 3 ML AMPUL.NEB (DUONEB) INH SCH (23:05)
[2023-04-29] VITALS (7 sets, daily range): BP systolic 123–132; PULSE 70–72; RESP 17–18; TEMP 97.7–98.4; O2SAT 95–98
[2023-04-29] MEDS: IPRATROPIUM/ALBUTEROL SULFATE 3 ML AMPUL.NEB (DUONEB) INH SCH (08:04)
[2023-04-29 08:11] LABS: BASOPHILS % (AUTO) 0.7 % (0.0-2.0); EOSINOPHILS # (AUTO) 0.2 K/uL (0.0-0.4); EOSINOPHILS % (AUTO) 4.8 % (0.0-4.0); HEMATOCRIT 32.5 % (36-48); HEMOGLOBIN 10.5 g/dL (12.0-16.0); LYMPHOCYTES # (AUTO) 0.4 K/uL (1.0-5.5); LYMPHOCYTES % (AUTO) 12.2 % (20.5-51.5); MEAN CORPUSCULAR HEMOGLOBIN 33 pg (27-31); MEAN CORPUSCULAR HGB CONC 32 % (32-36); MEAN CORPUSCULAR VOLUME 102 fL (79.0-98.0); MONOCYTES # (AUTO) 0.8 K/uL (0.0-1.0); MONOCYTES % (AUTO) 20.9 % (1.7-9.3); NEUTROPHILS # (AUTO) 2.2 K/uL (1.8-7.7); NEUTROPHILS % (AUTO) 61.4 % (40.0-70.0); PLATELET COUNT (AUTO) 112 K/uL (130-430); RED CELL DISTRIBUTION WIDTH 14.4 % (9.0-15.0); WHITE BLOOD COUNT (AUTO) 3.6 K/uL (4.8-10.8)
[2023-04-29 08:34] LABS: ALANINE AMINOTRANSFERASE 12 U/L (12-78); ALBUMIN 2.7 g/dL (3.4-4.8); ANION GAP 8 (5-15); ASPARTATE AMINOTRANSFERASE 18 U/L (10-37); CALCIUM 9.1 mg/dL (8.4-11.0); CARBON DIOXIDE 28 mmol/L (23-29); CHLORIDE 105 mmol/L (98-107); DIGOXIN 0.8 ng/mL (0.80-2.00); GLUCOSE 89 mg/dL (74-106); POTASSIUM 3.6 mmol/L (3.5-5.1); SODIUM SERUM 141 mmol/L (136-145); TOTAL BILIRUBIN 1.5 mg/dL (0.0-1.0); UREA NITROGEN, BLOOD 39 mg/dL (8-21)
[2023-04-29] MEDS: CHOLECALCIFEROL (VITAMIN D3) 2,000 UNIT TABLET PO SCH (08:59)
[2023-04-29] MEDS: METOPROLOL TARTRATE 25 MG TABLET PO SCH (08:59)
[2023-04-29] MEDS: DIGOXIN 0.125 MG TABLET PO SCH (09:00)
[2023-04-29] MEDS: MIDODRINE HCL 5 MG TABLET (PROAMATINE) PO SCH (09:00)
[2023-04-29] MEDS ORDERED: POTASSIUM CHLORIDE 20 MEQ TAB.PRT.SR PO SCH (09:00)
[2023-04-29] MEDS: FERROUS SULFATE 300 MG/5 ML UDC PO SCH (09:01)
[2023-04-29] MEDS: LACTOBACILLUS RHAMNOSUS GG 1 CAP CAPSULE PO SCH (09:01)
[2023-04-29] MEDS: PANTOPRAZOLE SODIUM 40 MG/VIAL (PROTONIX) IVP SCH (09:02)
[2023-04-29] MEDS: BUMETANIDE 1 MG TABLET PO SCH (09:02)
[2023-04-29] MEDS ORDERED: levoFLOXacin 250 MG TABLET PO SCH (10:00)
[2023-04-29] MEDS ORDERED: IPRA3AMP9 INH (13:37)
[2023-04-29] MEDS ORDERED: MIDO5TAB4 PO (13:37)
[2023-04-29] MEDS ORDERED: LACT1CAP57 PO (13:37)
[2023-04-29] MEDS ORDERED: LEVO-62 PO (13:39)
== END 2023-04-29 15:25 | disposition home health service (06) | DRG 871 ==
LOC: SED 11:34 → STU 14:18 → SIC 04-23 20:10 → STU 04-26 22:43
PROVIDERS: ADMIT Internal Medicine; ATTEND Internal Medicine
PROC: 30233K1 Transfusion of Nonautologous Frozen Plasma into Peripheral Vein, Percutaneous Approach (ICD-10-PCS; principal; 2023-04-23)
PROC: 5A09357 Assistance with Respiratory Ventilation, Less than 24 Consecutive Hours, Continuous Positive Airway Pressure (ICD-10-PCS; 2023-04-26)
DX: A41.9 Sepsis, unspecified organism (principal); I50.43 Acute on chronic combined systolic (congestive) and diastolic (congestive) heart failure; R65.21 Severe sepsis with septic shock; J96.00 Acute respiratory failure, unspecified whether with hypoxia or hypercapnia; N17.0 Acute kidney failure with tubular necrosis; J18.9 Pneumonia, unspecified organism; D62 Acute posthemorrhagic anemia; I48.20 Chronic atrial fibrillation, unspecified; I31.39 Other pericardial effusion (noninflammatory); L03.116 Cellulitis of left lower limb; L03.115 Cellulitis of right lower limb; E44.1 Mild protein-calorie malnutrition; D61.818 Other pancytopenia; N39.0 Urinary tract infection, site not specified; I13.0 Hypertensive heart and chronic kidney disease with heart failure and stage 1 through stage 4 chronic kidney disease, or unspecified chronic kidney disease; K92.2 Gastrointestinal hemorrhage, unspecified; I87.8 Other specified disorders of veins; E80.6 Other disorders of bilirubin metabolism; N18.9 Chronic kidney disease, unspecified; I34.0 Nonrheumatic mitral (valve) insufficiency; Z20.822 Contact with and (suspected) exposure to COVID-19; Z79.01 Long term (current) use of anticoagulants; Z85.3 Personal history of malignant neoplasm of breast; Z86.73 Personal history of transient ischemic attack (TIA), and cerebral infarction without residual deficits; Z86.79 Personal history of other diseases of the circulatory system; Z90.49 Acquired absence of other specified parts of digestive tract; Z92.21 Personal history of antineoplastic chemotherapy; Z95.0 Presence of cardiac pacemaker; Z88.6 Allergy status to analgesic agent; Z79.899 Other long term (current) drug therapy; Z68.35 Body mass index [BMI] 35.0-35.9, adult; B96.20 Unspecified Escherichia coli [E. coli] as the cause of diseases classified elsewhere; R58 Hemorrhage, not elsewhere classified
CPT/HCPCS: 36415; 36600; 71045; 76376; 76770; 80053; 80061; 80162; 81000; 81001; 82150; 82570; 82803; 82962; 83605; 83690; 83735; 83880; 84100; 84302; 84439; 84443; 85007; 85025; 85027; 85610-TC; 85730-TC; 86886; 86900; 86901; 87081; 87086; 93005; 93306; 94640; 94660; 94760; 96365; 97110-GP; 97116-GP; 97530-GP; 99285; C9113; G0378; J0456; J0696; J1200; J1940; J2175; J2250; J2270; J2543; J3370; J3490; J7050; J7060; P9046; P9059